=== PATIENT | male | born 1950 | race African-American/Black ===

== ENCOUNTER → 2016-10-07 | Outpatient (CLI) | payer OTHER | LOC: LAB 07:11 | PROVIDERS: ATTEND Nurse Practitioner Family | DX: M85.9 Disorder of bone density and structure, unspecified (principal) | CPT/HCPCS: 36415; 82306; 82330; 84270; 84402; 84403; 85652 ==

== ENCOUNTER → 2016-10-24 | Outpatient (CLI) | payer OTHER ==
[2016-10-24 07:32] LABS: BASOPHILS % (AUTO) 0.8 % (0.2-1.0); EOSINOPHILS # (AUTO) 0.1 x10^3/uL (0.0-0.2); EOSINOPHILS % (AUTO) 1.8 % (0.9-2.9); HEMATOCRIT 43.5 % (42.0-54.0); HEMOGLOBIN 14.5 g/dL (13.5-18.0); LYMPHOCYTES # (AUTO) 1.8 X10^3/uL (1.3-2.9); LYMPHOCYTES % (AUTO) 32.7 % (21.0-51.0); MEAN CORPUSCULAR HGB CONC 33.4 g/dL (33.0-35.0); MEAN CORPUSCULAR VOLUME 81.1 fL (80.0-100.0); MEAN PLATELET VOLUME 8.4 fL (7.4-11.0); MONOCYTES # (AUTO) 0.5 x10^3/uL (0.3-0.8); MONOCYTES % (AUTO) 8.9 % (0.0-13.0); NEUTROPHILS # (AUTO) 3.1 x10^3/uL (2.2-4.8); NEUTROPHILS % (AUTO) 55.8 % (42.0-75.0); PLATELET COUNT 278 X10^3/uL (150.0-450.0); RED BLOOD COUNT 5.37 X10^6/uL (4.7-6.0); RED CELL DISTRIBUTION WIDTH 14.4 % (11.6-16.5); WHITE BLOOD COUNT 5.6 X10^3/uL (3.6-10.0)
[2016-10-24 07:55] LABS: ALANINE AMINOTRANSFERASE 50 Units/L (12-78); ALBUMIN 3.8 g/dL (3.4-5.0); ALKALINE PHOSPHATASE 71 Units/L (46-116); ASPARTATE AMINO TRANSFERASE 24 Units/L (15-37); BILIRUBIN,DIRECT 0.07 mg/dL (0-0.2); BLOOD UREA NITROGEN 14 mg/dL (7-18); CALCIUM 8.7 mg/dL (8.5-10.1); CARBON DIOXIDE 26.8 mmol/L (21-32); CHLORIDE 106 mmol/L (98-107); CHOL/HDL RATIO 2.4 (0.0-5.0); CHOLESTEROL 121 mg/dL (0-200); CREATININE 0.86 mg/dL (0.70-1.30); HDL CHOLESTEROL 51 mg/dL (40-60); SODIUM 142 mmol/L (136-145); TOTAL PROTEIN 8.1 g/dL (6.4-8.2); TRIGLYCERIDES 33 mg/dL (0-150); eGFR BLACK RACES > 60 (>60); eGFR NON BLACK RACES > 60 (>60)
[2016-10-24 07:58] LABS: GLUCOSE 109 mg/dL (65-99)
== END ==
LOC: LAB 07:06
PROVIDERS: ATTEND Internal Medicine Cardiovascular Disease
DX: I35.0 Nonrheumatic aortic (valve) stenosis (principal); I10 Essential (primary) hypertension; E78.4 Other hyperlipidemia
CPT/HCPCS: 36415; 80048; 80061; 80076; 85025

== ENCOUNTER → 2017-03-19 | Outpatient (CLI) | payer OTHER ==
[2017-03-19 08:05] LABS: BASOPHILS % (AUTO) 0.7 % (0.2-1.0); EOSINOPHILS # (AUTO) 0.2 x10^3/uL (0.0-0.2); EOSINOPHILS % (AUTO) 3.7 % (0.9-2.9); HEMATOCRIT 42.9 % (42.0-54.0); HEMOGLOBIN 14.8 g/dL (13.5-18.0); LYMPHOCYTES # (AUTO) 1.9 X10^3/uL (1.3-2.9); LYMPHOCYTES % (AUTO) 40.6 % (21.0-51.0); MEAN CORPUSCULAR HEMOGLOBIN 28.2 pg (27.0-34.0); MEAN CORPUSCULAR HGB CONC 34.6 g/dL (33.0-35.0); MEAN CORPUSCULAR VOLUME 81.5 fL (80.0-100.0); MEAN PLATELET VOLUME 8.8 fL (7.4-11.0); MONOCYTES # (AUTO) 0.4 x10^3/uL (0.3-0.8); MONOCYTES % (AUTO) 9.2 % (0.0-13.0); NEUTROPHILS # (AUTO) 2.2 x10^3/uL (2.2-4.8); NEUTROPHILS % (AUTO) 45.8 % (42.0-75.0); PLATELET COUNT 275 X10^3/uL (150.0-450.0); RED BLOOD COUNT 5.26 X10^6/uL (4.7-6.0); RED CELL DISTRIBUTION WIDTH 13.6 % (11.6-16.5); WHITE BLOOD COUNT 4.8 X10^3/uL (3.6-10.0)
[2017-03-19 08:14] LABS: ALANINE AMINOTRANSFERASE 40 Units/L (12-78); ALBUMIN 3.9 g/dL (3.4-5.0); ALKALINE PHOSPHATASE 68 Units/L (46-116); ASPARTATE AMINO TRANSFERASE 23 Units/L (15-37); BLOOD UREA NITROGEN 16 mg/dL (7-18); CALCIUM 8.7 mg/dL (8.5-10.1); CARBON DIOXIDE 26.1 mmol/L (21-32); CHLORIDE 107 mmol/L (98-107); CREATININE 0.92 mg/dL (0.70-1.30); SODIUM 140 mmol/L (136-145); TOTAL PROTEIN 7.9 g/dL (6.4-8.2); eGFR BLACK RACES > 60 (>60); eGFR NON BLACK RACES > 60 (>60)
[2017-03-19 08:44] LABS: TOTAL PSA 1.99 ng/mL (0.13-4.0)
== END ==
LOC: LAB 07:33
PROVIDERS: ATTEND Psychiatry & Neurology Neurology
DX: I10 Essential (primary) hypertension (principal); M85.89 Other specified disorders of bone density and structure, multiple sites; Z12.5 Encounter for screening for malignant neoplasm of prostate
CPT/HCPCS: 36415; 80053; 82306; 84153; 85025

== ENCOUNTER → 2017-07-22 | Outpatient (CLI) | payer OTHER ==
--- NOTE | 2017-07-22 16:20 | RAD ---
Indication: Shortness of breath. Exam: PA and lateral Comparison: 06/11/2016 Findings: The heart is normal. The pulmonary vessels are prominent centrally but unchanged. There are mild linear densities along the lung bases which are unchanged or less prominent. No consolidation o r effusion is seen. The bones are intact. Impression: Stable mild cardiomegaly and probable pulmonary artery hypertension which is unchanged. Mild discoid atelectasis or scarring along the lung bases which is less prominent or unchanged with n o infiltrate or effusion. Reported By:
== END ==
LOC: RAD 15:36
PROVIDERS: ATTEND Nurse Practitioner Family
DX: R06.02 Shortness of breath (principal)
CPT/HCPCS: 71046

== ENCOUNTER → 2017-08-29 | Outpatient (CLI) | payer OTHER ==
[2017-08-29 07:09] LABS: BASOPHILS % (AUTO) 0.7 % (0.2-1.0); EOSINOPHILS # (AUTO) 0.1 x10^3/uL (0.0-0.2); EOSINOPHILS % (AUTO) 1.2 % (0.9-2.9); HEMATOCRIT 42.4 % (42.0-54.0); HEMOGLOBIN 14.6 g/dL (13.5-18.0); LYMPHOCYTES # (AUTO) 3.8 X10^3/uL (1.3-2.9); LYMPHOCYTES % (AUTO) 54.6 % (21.0-51.0); MEAN CORPUSCULAR HEMOGLOBIN 27.3 pg (27.0-34.0); MEAN CORPUSCULAR HGB CONC 34.5 g/dL (33.0-35.0); MEAN PLATELET VOLUME 7.6 fL (7.4-11.0); MONOCYTES # (AUTO) 0.5 x10^3/uL (0.3-0.8); MONOCYTES % (AUTO) 7.9 % (0.0-13.0); NEUTROPHILS # (AUTO) 2.5 x10^3/uL (2.2-4.8); NEUTROPHILS % (AUTO) 35.6 % (42.0-75.0); PLATELET COUNT 282 X10^3/uL (150.0-450.0); RED BLOOD COUNT 5.37 X10^6/uL (4.7-6.0); RED CELL DISTRIBUTION WIDTH 14.4 % (11.6-16.5); WHITE BLOOD COUNT 6.9 X10^3/uL (3.6-10.0)
[2017-08-29 07:18] LABS: ALANINE AMINOTRANSFERASE 40 Units/L (12-78); ALKALINE PHOSPHATASE 77 Units/L (46-116); ASPARTATE AMINO TRANSFERASE 19 Units/L (15-37); BILIRUBIN,DIRECT 0.16 mg/dL (0-0.2); BLOOD UREA NITROGEN 17 mg/dL (7-18); CALCIUM 8.3 mg/dL (8.5-10.1); CARBON DIOXIDE 24.6 mmol/L (21-32); CHLORIDE 104 mmol/L (98-107); CHOL/HDL RATIO 2.7 (0.0-5.0); CHOLESTEROL 127 mg/dL (0-200); HDL CHOLESTEROL 47 mg/dL (40-60); SODIUM 139 mmol/L (136-145); TOTAL PROTEIN 8.3 g/dL (6.4-8.2); TRIGLYCERIDES 44 mg/dL (0-150); eGFR BLACK RACES > 60 (>60); eGFR NON BLACK RACES > 60 (>60)
[2017-08-29 07:20] LABS: PLATELET MORPHOLOGY COMMENT NORMAL (NORMAL)
== END ==
LOC: LAB 06:52
PROVIDERS: ATTEND Internal Medicine Cardiovascular Disease
DX: I35.0 Nonrheumatic aortic (valve) stenosis (principal); I10 Essential (primary) hypertension; E78.4 Other hyperlipidemia
CPT/HCPCS: 36415; 80048; 80061; 80076; 85025

== ENCOUNTER → 2017-11-05 | Outpatient (CLI) | payer OTHER | LOC: LAB 07:26 | PROVIDERS: ATTEND Nurse Practitioner Family | DX: Z86.79 Personal history of other diseases of the circulatory system (principal) | CPT/HCPCS: 36415; 85610 ==

== ENCOUNTER 2017-12-19 09:09 | Inpatient (IN) ==
[2017-12-19 09:16] VITALS: BMI 30.1
--- NOTE | 2017-12-19 09:41 | DR.GENAD ---
HPI - PCP Primary Care Physician: ABBEY SNOW - HPI Comment HPI Comment: AT WORK WHEN TIGHTNESS IN LEFT CHEST STARTED ASSOCIATED WITH SOB. NO NAUSEA, FEVER OR COUGH. PAIN NON RADIATING. KNOT LEFT LEG ONE WEEK AGO. - Complaint/Symptoms Chief Complaint Doctors Comments: CHEST PAIN, TIGHTNESS. Chief Complaint:: PT C/O BEING AT WORK THIS AM ANDTHAT HE STARTED HAVING SOME TIGTNESS TO HIS CHEST AND THAT IF FEELS LIKE PINS. AND PT C/O ABOUT A WEEK AGO THAT HE HAS KNOT TO THE SIDE OF HIS LEFT LEG AND IN SEPTEMBER HE HAD A HEART VALVE REPLACED AND THAT HE WANT TO MAKE SURE HE DOES NOT HAVE A BLOOD CLOT,,BR - Nurses notes reviewed Nurses Notes Review: Yes - Source History Provided: Patient - Mode of Arrival Mode of Arrival: Ambulatory - Timing Onset of Chief Complaint: 12/19/17 Came on: Suddenly - Duration Duration: Constant Duration: Hours - Severity Severity: Moderate PMH - PMH Past Medical History: Yes Past Medical History: Hypertension Past Surgical History: Yes Past Surgical History Comment: HEART VALVE REPLACEMENT, BACK SUGERY - Family History History of Family Medical Conditions: No - Social History Does patient currently use any type of tobacco product: No Have you used tobacco products in the last 12 months: No Type of Tobacco Use: None Does any household member use tobacco: No Alcohol Use: None Do you use any recreational Drugs:: No Lives With: Significant Other Lives Where: Home - infectious screening In the last 2 months have you had wt loss of >10#?: NO Have you had fever, night sweats or hemotysis?: No Have you traveled outside the country in the last 6 months?: No Isolation: Standard ROS - Review of Systems Constitutional: Weakness, Fatigue. negative: Chills, Fever Eyes: No Symptoms Reported ENTM: No Symptoms Reported Cardiovascular: Chest Pain Gastrointestinal/Abdominal: No Symptoms Reported Genitourinary: No Symptoms Reported Neurological: No Symptoms Reported Integumentary: No Symptoms Reported Hematologic/Lymphatic: No Symptoms Reported Endocrine: No Symptoms Reported Psychiatric: No Symptoms Reported All Other Systems: Reviewed and Negative PE - General Limitations: No Limitations General Appearance: Alert - Head Head Exam: Normal Inspection - ENT ENT Exam: Normal External Ear Exam TM/Canal Exam: Bilateral Normal Nose Exam: Normal Nose Exam Mouth Exam: Normal Inspection Throat Exam: Normal Inspection - Neck Neck Exam: Normal Inspection - Chest Chest Inspection: Normal Inspection, Symmetric Chest Wall Rise - Respiratory Respiratory Exam: Normal Lung Sounds Bilat Respiratory Exam: Bilateral Clear to Auscultation - Cardiovascular Cardiovascular Exam: Regular Rate, Normal Rhythm, Normal Heart Sounds - Abdominal Exam Abdominal Exam: Normal Bowel Sounds, Soft. negative: Tenderness - Extremities Extremities Exam: Normal Inspection - Neurologic Neurological Exam: Alert, Oriented X3, CN II-XII Intact. negative: Motor Sensory Deficit - Psychiatric Psychiatric Exam: Normal Affect, Normal Mood - Skin Skin Exam: Intact, Normal Color - Vital Signs Vitals: Temperature 97.0 F Pulse Rate [Left Brachial] 71 Pulse Rate 85 Respiratory Rate 20 Blood Pressure [Right Arm] 157/74 Blood Pressure 213/88 O2 Sat by Pulse Oximetry 99 MDM - Differential Diagnosis Differential Diagnosis: CHEST PAIN, [place], PE, PNEUMONIA. Course - Treatment Treatment: SEE ORDERS. - Education/Counseling Education/Counseling: Patient Educated On: Diagnosis ROR - Labs Reviewed Laboratory Results Reviewed?: Yes Result Diagrams: 12/22/17 05:42 12/22/17 05:42 - XRAY XRAY Interpreted by: Radiologist XRAY Findings: REPORT DISCUSS WITH PATIENT. - EKG Rhythm: NSR (EKG NOTED.), ST (EKG NOTED.) - Labs Reviewed Laboratory: WBC 5.1 X10^3/uL (3.6-10.0) 12/19/17 09:50 RBC 4.93 X10^6/uL (4.7-6.0) 12/19/17 09:50 Hgb 13.6 g/dL (13.5-18.0) 12/19/17 09:50 Hct 39.6 % (42.0-54.0) L 12/19/17 09:50 MCV 80.3 fL (80.0-100.0) 12/19/17 09:50 MCH 27.7 pg (27.0-34.0) 12/19/17 09:50 MCHC 34.5 g/dL (33.0-35.0) 12/19/17 09:50 RDW 15.0 % (11.6-16.5) 12/19/17 09:50 Plt Count 296 X10^3/uL (150.0-450.0) 12/19/17 09:50 MPV 7.7 fL (7.4-11.0) 12/19/17 09:50 Neut % (Auto) 42.7 % (42.0-75.0) 12/19/17 09:50 Lymph % (Auto) 42.5 % (21.0-51.0) 12/19/17 09:50 [place] % (Auto) 12.1 % (0.0-13.0) 12/19/17 09:50 Eos % (Auto) 1.8 % (0.9-2.9) 12/19/17 09:50 Baso % (Auto) 0.9 % (0.2-1.0) 12/19/17 09:50 Neut # (Auto) 2.2 x10^3/uL (2.2-4.8) 12/19/17 09:50 Lymph # (Auto) 2.1 X10^3/uL (1.3-2.9) 12/19/17 09:50 [place] # (Auto) 0.6 x10^3/uL (0.3-0.8) 12/19/17 09:50 Eos # (Auto) 0.1 x10^3/uL (0.0-0.2) 12/19/17 09:50 Baso # (Auto) 0.0 X10^3/uL (0.0-0.1) 12/19/17 09:50 Absolute Nucleated RBC 0.2 /100WBC 12/19/17 09:50 D-Dimer < 100 ng/mL (0-400) 12/19/17 09:50 Sodium 139 mmol/L (136-145) 12/19/17 09:50 Corrected Sodium TNP 12/19/17 09:50 Potassium 3.5 mmol/L (3.5-5.1) 12/19/17 09:50 Chloride 106 mmol/L (98-107) 12/19/17 09:50 Carbon Dioxide 25.9 mmol/L (21-32) 12/19/17 09:50 BUN 15 mg/dL (7-18) 12/19/17 09:50 Creatinine 0.80 mg/dL (0.70-1.30) 12/19/17 09:50 Est GFR (MDRD) Af Amer > 60 (>60) 12/19/17 09:50 Est GFR (MDRD) Non-Af > 60 (>60) 12/19/17 09:50 Glucose 92 mg/dL (65-99) 12/19/17 09:50 Calcium 8.7 mg/dL (8.5-10.1) 12/19/17 09:50 Corrected Calcium TNP 12/19/17 09:50 Total Bilirubin 0.30 mg/dL (0.2-1.0) 12/19/17 09:50 AST 23 Units/L (15-37) 12/19/17 09:50 ALT 44 Units/L (12-78) 12/19/17 09:50 Alkaline Phosphatase 77 Units/L (46-116) 12/19/17 09:50 Creatine Kinase 367 Units/L (39-308) H 12/19/17 09:50 CK-MB (CK-2) 1.9 ng/mL (0-4.0) 12/19/17 09:50 CK/CKMB % Calc 0.5 % (<4) 12/19/17 09:50 Troponin I < 0.02 ng/mL (0-1.5) 12/19/17 09:50 Total Protein 7.7 g/dL (6.4-8.2) 12/19/17 09:50 Albumin 3.8 g/dL (3.4-5.0) 12/19/17 09:50 Globulin 3.9 g/dL (2.5-4.5) 12/19/17 09:50 Albumin/Globulin Ratio 1.0 Ratio (1.1-2.1) L 12/19/17 09:50 Specimen Type Clean catch urine 12/19/17 10:21 Urine Color Yellow (YELLOW) 12/19/17 10:21 Urine Appearance Clear (CLEAR) 12/19/17 10:21 Urine pH 6.0 (5.0 - 8.0) 12/19/17 10:21 Ur Specific [place] 1.010 (1.000-1.030) 12/19/17 10:21 Urine Protein Negative (NEGATIVE) 12/19/17 10:21 Urine Glucose (UA) 1+ (NEGATIVE) 12/19/17 10:21 Urine Ketones Negative (NEGATIVE) 12/19/17 10:21 Urine Occult Blood 1+ (NEGATIVE) 12/19/17 10:21 Urine Nitrite Negative (NEGATIVE) 12/19/17 10:21 Urine Bilirubin Negative (NEGATIVE) 12/19/17 10:21 Urine Urobilinogen Normal (NORMAL) 12/19/17 10:21 Ur Leukocyte Esterase 1+ (NEGATIVE) 12/19/17 10:21 Urine RBC 0-2 /HPF (NONE SEEN) 12/19/17 10:21 Urine WBC 0-2 /HPF (NONE SEEN) 12/19/17 10:21 Ur Squamous Epith Cells Rare /HPF (NEGATIVE) 12/19/17 10:21 Urine Bacteria Negative /HPF (NEGATIVE) 12/19/17 10:21 Ur Culture Indicated? No/not indicated 12/19/17 10:21 - Diagnosis Discharge Problem: Chest pain - Discharge Plan Disposition: HOME, SELF-CARE Condition: Stable
[2017-12-19 10:00] LABS: BASOPHILS % (AUTO) 0.9 % (0.2-1.0); EOSINOPHILS # (AUTO) 0.1 x10^3/uL (0.0-0.2); EOSINOPHILS % (AUTO) 1.8 % (0.9-2.9); HEMATOCRIT 39.6 % (42.0-54.0); HEMOGLOBIN 13.6 g/dL (13.5-18.0); LYMPHOCYTES # (AUTO) 2.1 X10^3/uL (1.3-2.9); LYMPHOCYTES % (AUTO) 42.5 % (21.0-51.0); MEAN CORPUSCULAR HEMOGLOBIN 27.7 pg (27.0-34.0); MEAN CORPUSCULAR HGB CONC 34.5 g/dL (33.0-35.0); MEAN CORPUSCULAR VOLUME 80.3 fL (80.0-100.0); MEAN PLATELET VOLUME 7.7 fL (7.4-11.0); MONOCYTES # (AUTO) 0.6 x10^3/uL (0.3-0.8); MONOCYTES % (AUTO) 12.1 % (0.0-13.0); NEUTROPHILS # (AUTO) 2.2 x10^3/uL (2.2-4.8); NEUTROPHILS % (AUTO) 42.7 % (42.0-75.0); PLATELET COUNT 296 X10^3/uL (150.0-450.0); RED BLOOD COUNT 4.93 X10^6/uL (4.7-6.0); WHITE BLOOD COUNT 5.1 X10^3/uL (3.6-10.0)
[2017-12-19 10:20] LABS: BLOOD UREA NITROGEN 15 mg/dL (7-18); CALCIUM 8.7 mg/dL (8.5-10.1); CARBON DIOXIDE 25.9 mmol/L (21-32); CHLORIDE 106 mmol/L (98-107); SODIUM 139 mmol/L (136-145); TROPONIN I < 0.02 ng/mL (0-1.5); eGFR NON BLACK RACES > 60 (>60)
[2017-12-19 10:25] LABS: ALANINE AMINOTRANSFERASE 44 Units/L (12-78); ALBUMIN 3.8 g/dL (3.4-5.0); ALKALINE PHOSPHATASE 77 Units/L (46-116); ASPARTATE AMINO TRANSFERASE 23 Units/L (15-37); CKMB % 0.5 % (<4); CREATINE KINASE 367 Units/L (39-308); CREATINE KINASE MB 1.9 ng/mL (0-4.0); TOTAL PROTEIN 7.7 g/dL (6.4-8.2)
[2017-12-19 10:38] LABS: BILIRUBIN,URINE NEGATIVE (NEGATIVE); BLOOD/HEMOGLOBIN,URINE 1+ (NEGATIVE); GLUCOSE, URINE 1+ (NEGATIVE); KETONES,URINE NEGATIVE (NEGATIVE); LEUKOCYTE ESTERASE ,URINE 1+ (NEGATIVE); NITRITES,URINE NEGATIVE (NEGATIVE); PROTEIN,URINE NEGATIVE (NEGATIVE); UROBILINOGEN,URINE NORMAL (NORMAL)
[2017-12-19 10:50] LABS: APPEARANCE,URINE CLEAR (CLEAR); COLOR,URINE YELLOW (YELLOW)
[2017-12-19 10:52] LABS: BACTERIA,URINE NEGATIVE /HPF (NEGATIVE); RBC,URINE 0-2 /HPF (NONE SEEN); SQUAMOUS EPITHELIAL CELL,UR RARE /HPF (NEGATIVE)
[2017-12-19] MEDS ORDERED: NITROSTAT SL PRN (12:26)
[2017-12-19] MEDS ORDERED: PATIENT'S HOME MEDICATION (Albuterol Sulfate [Proair Hfa] 1 INH) IN PRN (12:26)
[2017-12-19] MEDS ORDERED: ALENDRONATE PO SCH (12:30)
[2017-12-19] MEDS ORDERED: PROVENTIL NEB TX 0.083% 2.5MG/ 3ML NEB PRN (12:47)
--- NOTE | 2017-12-19 12:54 | RAD ---
HISTORY: Chest pain Study: Chest AP portable Comparison: 07/22/2017 Findings: The heart is within normal limits in size. The abel are normal. The lungs are free of acute infiltrat es. Surgical clips are present in the right hilum the bony thorax is unremarkable. IMPRESSION: No significant abnormality identified Reported By:
[2017-12-19] MEDS ORDERED: ISOSORBIDE DINITRATE PO SCH (14:00)
[2017-12-19] MEDS ORDERED: HYDRALAZINE PO SCH (14:00)
[2017-12-19] MEDS: NS 1000 ML 1,000 ML IV SCH (14:12)
[2017-12-19] MEDS: APRESOLINE TAB 25 MG PO SCH ×2 (14:54→22:53)
[2017-12-19] MEDS: APRESOLINE TAB 10 MG PO SCH ×2 (14:54→21:01)
[2017-12-19] MEDS: ISOSORBIDE DINITRATE PO SCH ×2 (14:55→21:55)
[2017-12-19 16:07] LABS: CKMB % 0.5 % (<4); CREATINE KINASE 338 Units/L (39-308); CREATINE KINASE MB 1.7 ng/mL (0-4.0); TROPONIN I < 0.02 ng/mL (0-1.5)
[2017-12-19] MEDS: CRESTOR TAB 10 MG PO SCH (21:00)
[2017-12-19] MEDS: CATAPRES TAB 0.2 MG PO SCH (21:00)
[2017-12-19] MEDS: ZESTRIL TAB 40 MG PO SCH (21:00)
[2017-12-19] MEDS: NEURONTIN CAP 400 MG PO SCH (21:00)
[2017-12-19] MEDS: COUMADIN TAB 7.5 MG PO SCH (21:55)
[2017-12-19 23:19] LABS: CKMB % 0.4 % (<4); CREATINE KINASE 285 Units/L (39-308); CREATINE KINASE MB 1.2 ng/mL (0-4.0); TROPONIN I < 0.02 ng/mL (0-1.5)
[2017-12-20] MEDS: NS 1000 ML 1,000 ML IV SCH ×2 (03:11→18:34)
[2017-12-20 06:03] LABS: BASOPHILS # (AUTO) 0.1 X10^3/uL (0.0-0.1); BASOPHILS % (AUTO) 1.2 % (0.2-1.0); EOSINOPHILS # (AUTO) 0.2 x10^3/uL (0.0-0.2); HEMATOCRIT 38.8 % (42.0-54.0); HEMOGLOBIN 13.5 g/dL (13.5-18.0); LYMPHOCYTES # (AUTO) 2.3 X10^3/uL (1.3-2.9); LYMPHOCYTES % (AUTO) 42.1 % (21.0-51.0); MEAN CORPUSCULAR HEMOGLOBIN 27.8 pg (27.0-34.0); MEAN CORPUSCULAR HGB CONC 34.8 g/dL (33.0-35.0); MEAN CORPUSCULAR VOLUME 79.8 fL (80.0-100.0); MEAN PLATELET VOLUME 8.3 fL (7.4-11.0); MONOCYTES # (AUTO) 0.5 x10^3/uL (0.3-0.8); MONOCYTES % (AUTO) 9.9 % (0.0-13.0); NEUTROPHILS # (AUTO) 2.4 x10^3/uL (2.2-4.8); NEUTROPHILS % (AUTO) 43.8 % (42.0-75.0); PLATELET COUNT 266 X10^3/uL (150.0-450.0); RED BLOOD COUNT 4.86 X10^6/uL (4.7-6.0); RED CELL DISTRIBUTION WIDTH 15.2 % (11.6-16.5); WHITE BLOOD COUNT 5.4 X10^3/uL (3.6-10.0)
[2017-12-20 06:20] LABS: ALANINE AMINOTRANSFERASE 40 Units/L (12-78); ALBUMIN 3.4 g/dL (3.4-5.0); ALKALINE PHOSPHATASE 69 Units/L (46-116); ASPARTATE AMINO TRANSFERASE 18 Units/L (15-37); BLOOD UREA NITROGEN 15 mg/dL (7-18); CALCIUM 8.6 mg/dL (8.5-10.1); CARBON DIOXIDE 24.9 mmol/L (21-32); CHLORIDE 107 mmol/L (98-107); CHOL/HDL RATIO 2.9 (0.0-5.0); CHOLESTEROL 121 mg/dL (0-200); CREATININE 0.91 mg/dL (0.70-1.30); HDL CHOLESTEROL 42 mg/dL (40-60); MAGNESIUM 1.9 mg/dL (1.7-2.9); SODIUM 140 mmol/L (136-145); TOTAL PROTEIN 7.3 g/dL (6.4-8.2); TRIGLYCERIDES 84 mg/dL (0-150); eGFR NON BLACK RACES > 60 (>60)
[2017-12-20] MEDS: APRESOLINE TAB 10 MG PO SCH ×3 (06:24→21:40)
[2017-12-20] MEDS: APRESOLINE TAB 25 MG PO SCH ×3 (06:24→21:40)
[2017-12-20] MEDS: ISOSORBIDE DINITRATE PO SCH ×3 (06:25→21:33)
[2017-12-20] MEDS: ASPIRIN EC 81 MG PO SCH (09:00)
[2017-12-20] MEDS ORDERED: NIFEDIPINE PO SCH (09:00)
[2017-12-20] MEDS: ZyrTEC TAB 10 MG PO SCH (09:00)
[2017-12-20] MEDS: PROCARDIA XL PO SCH (09:00)
[2017-12-20] MEDS: FLOMAX PO SCH (09:00)
[2017-12-20] MEDS: CATAPRES TAB 0.2 MG PO SCH ×2 (09:00→21:32)
[2017-12-20] MEDS: PROTONIX TAB 40 MG PO SCH (09:00)
[2017-12-20] MEDS ORDERED: COUMADIN TAB 5 MG PO ONE (13:56)
[2017-12-20] MEDS: NEURONTIN CAP 400 MG PO SCH (21:32)
[2017-12-20] MEDS: COUMADIN TAB 7.5 MG PO SCH (21:35)
[2017-12-20] MEDS: CRESTOR TAB 10 MG PO SCH (21:37)
[2017-12-20] MEDS: ZESTRIL TAB 40 MG PO SCH (21:39)
[2017-12-20] MEDS: LOVENOX INJ 100 MG SYR SC SCH (21:41)
--- NOTE | 2017-12-20 22:34 | DR.H&P ---
H&P - History & Physical for Day of: H&P Date: 12/19/17 - Chief Complaint Chief Complaint: CHEST BURNING - History of Present Illness History of Present Illness: PT C/O BEING AT WORK THIS AM ANDTHAT HE STARTED HAVING SOME TIGTNESS TO HIS CHEST AND THAT IF FEELS LIKE PINS. AND PT C/O ABOUT A WEEK AGO THAT HE HAS KNOT TO THE SIDE OF HIS LEFT LEG AND IN SEPTEMBER HE HAD A HEART VALVE REPLACED AND THAT HE WANT TO MAKE SURE HE DOES NOT HAVE A BLOOD CLOT - Past Medical History Past Medical History: Hypertension Additional Medical History: AORTIC VALVE REPLACEMENT ON CHRONIC COUMADIN - Past Surgical History Surgical History: CABG/Valve Surgery, Ortho Surgery - Family History Family Medical History: Cancer, Coronary Artery Disease - Social History Does patient currently use any type of tobacco product: No Have you used tobacco products in the last 12 months: No Type of Tobacco Use: None Does any household member use tobacco: No Alcohol Use: None Drug Use: None - Medications Home Medications: penicillin G Allergy (Verified 12/19/17 09:16) CONTINUE taking the following medications albuterol sulfate [ProAir HFA] 1 inh INHALATION Q4-6H PRN 12/19/17 [History] alendronate [Fosamax] 1 tab PO WEEKLY 12/19/17 [History] aspirin [Aspir-81] 1 tab PO DAILY 12/19/17 [History] cetirizine 1 tab PO DAILY 12/19/17 [History] clonidine HCl 1 tab PO BID 12/19/17 [History] gabapentin [Neurontin] 1 tab PO HS 12/19/17 [History] isosorbide-hydralazine [BiDil] 1 tab PO TID 12/19/17 [History] lisinopril 1 tab PO HS 12/19/17 [History] nifedipine [Procardia XL] 1 tab PO DAILY 12/19/17 [History] nitroglycerin 1 tab SUBLINGUAL PRN PRN 12/19/17 [History] pantoprazole [Protonix] 1 tab PO DAILY 12/19/17 [History] rosuvastatin [Crestor] 1 tab PO HS 12/19/17 [History] tamsulosin 1 tab PO DAILY 12/19/17 [History] warfarin [Coumadin] 1 tab PO DAILY 12/19/17 [History] - Review of Systems Constitutional: No Symptoms Reported Eyes: No Symptoms Reported ENT: No Symptoms Reported Respiratory: No Symptoms Reported Cardiovascular: Chest Pain Gastrointestinal: No Symptoms Reported Genitourinary: No Symptoms Reported Musculoskeletal: No Symptoms Reported Skin: No Symptoms Reported Neurological: No Symptoms Reported - Physical Exam Vital Signs: Temperature 98.3 F Pulse Rate [Right Brachial] 48 Pulse Rate [Left Brachial] 58 Pulse Rate 85 Respiratory Rate 18 Blood Pressure [Left Arm] 147/67 Blood Pressure [Right Arm] 107/55 Blood Pressure 213/88 O2 Sat by Pulse Oximetry 96 Oriented: Normal Eyes: Normal Ear: Normal Nose: Normal Throat: Normal Respiratory: Clear Throughout Cardiovascular: Other (MECHANICAL VALVE CLICK (AORTIC)) : Normal Auscultation: Bowel Sounds: Normal Palpation: Normal Tenderness: Normal Skin: Normal Musculoskeletal: Normal Psychiatric: Normal Mood Description: Calm Affect: Normal Speech Pattern: Clear - Assessment/Plan (1) Subtherapeutic anticoagulation Status: Acute Plan: COUMADIN, CHECK INR (2) Mechanical heart valve present Status: Chronic (3) Hypertension Qualifiers: Hypertension type: essential hypertension Qualified Code(s): I10 - Essential (primary) hypertension Status: Acute Plan: MONITOR BP AND ADMINISTER HOME MEDS (4) Left leg pain Status: Acute Plan: MONITOR MOTOR STRENGTH (5) UTI (urinary tract infection) Qualifiers: Urinary tract infection type: acute cystitis Status: Acute Plan: MACROBID (6) Chest pain Status: Acute - Allergies Allergies/Adverse Reactions: Allergies Allergy/AdvReac Type Severity Reaction Status Date / Time penicillin G Allergy Verified 12/19/17 09:16
--- NOTE | 2017-12-20 22:38 | PCM.PROG ---
Progress Note - Progress Note for Day of Date of Exam: 12/20/17 - Subjective Subjective: 67YO BM ADMITTED DUE TO CHEST BURNING. DENIES GI SYMPTOMS. STATES PAIN IS BETTER. STATES THAT LEG PAIN IS IMPROVING. DENIES ANY OTHER COMPLAINTS. - Past Medical Family Social History Past Med/Fam/Surg Hx: No changes since H&P Allergies: Allergies penicillin G Allergy (Verified 12/19/17 09:16) - Review of Systems ROS: No change since H&P - Vital Signs and I&O's Vital Signs: Temperature 98.3 F Pulse Rate [Right Brachial] 48 Pulse Rate [Left Brachial] 58 Pulse Rate 85 Respiratory Rate 18 Blood Pressure [Left Arm] 147/67 Blood Pressure [Right Arm] 107/55 Blood Pressure 213/88 O2 Sat by Pulse Oximetry 96 Intake and Output: Intake & Output 12/18/17 12/19/17 12/20/17 12/21/17 11:59 11:59 11:59 11:59 Intake Total 1850 / 1850 2009 Output Total 800 / 800 Balance 1850 / 1850 1210 / 1210 - Physical Exam Oriented: Normal Eyes: Normal Ear: Normal Nose: Normal Throat: Normal Respiratory: Normal Cardiovascular: Other (MECHANICAL VALVE CLICK (AORTIC)) : Normal Auscultation: Bowel Sounds: Normal Palpation: Normal Tenderness: Normal Skin: Normal Musculoskeletal: Normal Psychiatric: Normal Mood Description: Calm Affect: Normal Speech Pattern: Clear - Laboratory and Diagnostics Result Diagrams: 12/20/17 05:27 12/20/17 05:27 Labs: Laboratory WBC 5.4 X10^3/uL (3.6-10.0) 12/20/17 05:27 RBC 4.86 X10^6/uL (4.7-6.0) 12/20/17 05:27 Hgb 13.5 g/dL (13.5-18.0) 12/20/17 05:27 Hct 38.8 % (42.0-54.0) L 12/20/17 05:27 MCV 79.8 fL (80.0-100.0) L 12/20/17 05:27 MCH 27.8 pg (27.0-34.0) 12/20/17 05:27 MCHC 34.8 g/dL (33.0-35.0) 12/20/17 05:27 RDW 15.2 % (11.6-16.5) 12/20/17 05:27 Plt Count 266 X10^3/uL (150.0-450.0) 12/20/17 05:27 MPV 8.3 fL (7.4-11.0) 12/20/17 05:27 Neut % (Auto) 43.8 % (42.0-75.0) 12/20/17 05:27 Lymph % (Auto) 42.1 % (21.0-51.0) 12/20/17 05:27 [place] % (Auto) 9.9 % (0.0-13.0) 12/20/17 05:27 Eos % (Auto) 3.0 % (0.9-2.9) H 12/20/17 05:27 Baso % (Auto) 1.2 % (0.2-1.0) H 12/20/17 05:27 Neut # (Auto) 2.4 x10^3/uL (2.2-4.8) 12/20/17 05:27 Lymph # (Auto) 2.3 X10^3/uL (1.3-2.9) 12/20/17 05:27 [place] # (Auto) 0.5 x10^3/uL (0.3-0.8) 12/20/17 05:27 Eos # (Auto) 0.2 x10^3/uL (0.0-0.2) 12/20/17 05:27 Baso # (Auto) 0.1 X10^3/uL (0.0-0.1) 12/20/17 05:27 Absolute Nucleated RBC 0.1 /100WBC 12/20/17 05:27 INR Target Range - 12/20/17 05:27 INR 1.82 (0.8-1.3) H 12/20/17 05:27 APTT 33.3 SECONDS (22.9-36.5) 12/20/17 05:27 PTT Comment - 12/20/17 05:27 D-Dimer < 100 ng/mL (0-400) 12/19/17 09:50 Sodium 140 mmol/L (136-145) 12/20/17 05:27 Corrected Sodium TNP 12/20/17 05:27 Potassium 3.9 mmol/L (3.5-5.1) 12/20/17 05:27 Chloride 107 mmol/L (98-107) 12/20/17 05:27 Carbon Dioxide 24.9 mmol/L (21-32) 12/20/17 05:27 BUN 15 mg/dL (7-18) 12/20/17 05:27 Creatinine 0.91 mg/dL (0.70-1.30) 12/20/17 05:27 Est GFR (MDRD) Af Amer > 60 (>60) 12/20/17 05:27 Est GFR (MDRD) Non-Af > 60 (>60) 12/20/17 05:27 Glucose 103 mg/dL (65-99) H 12/20/17 05:27 Calcium 8.6 mg/dL (8.5-10.1) 12/20/17 05:27 Corrected Calcium TNP 12/20/17 05:27 Magnesium 1.9 mg/dL (1.7-2.9) 12/20/17 05:27 Total Bilirubin 0.40 mg/dL (0.2-1.0) 12/20/17 05:27 AST 18 Units/L (15-37) 12/20/17 05:27 ALT 40 Units/L (12-78) 12/20/17 05:27 Alkaline Phosphatase 69 Units/L (46-116) 12/20/17 05:27 Creatine Kinase 285 Units/L (39-308) 12/19/17 22:33 CK-MB (CK-2) 1.2 ng/mL (0-4.0) 12/19/17 22:33 CK/CKMB % Calc 0.4 % (<4) 12/19/17 22:33 Troponin I < 0.02 ng/mL (0-1.5) 12/19/17 22:33 Total Protein 7.3 g/dL (6.4-8.2) 12/20/17 05:27 Albumin 3.4 g/dL (3.4-5.0) 12/20/17 05:27 Globulin 3.9 g/dL (2.5-4.5) 12/20/17 05:27 Albumin/Globulin Ratio 0.9 Ratio (1.1-2.1) L 12/20/17 05:27 Triglycerides 84 mg/dL (0-150) 12/20/17 05:27 Cholesterol 121 mg/dL (0-200) 12/20/17 05:27 LDL Cholesterol, Calc 62 mg/dL (0-100) 12/20/17 05:27 HDL Cholesterol 42 mg/dL (40-60) 12/20/17 05:27 Cholesterol/HDL Ratio 2.9 (0.0-5.0) 12/20/17 05:27 Specimen Type Clean catch urine 12/19/17 10:21 Urine Color Yellow (YELLOW) 12/19/17 10:21 Urine Appearance Clear (CLEAR) 12/19/17 10:21 Urine pH 6.0 (5.0 - 8.0) 12/19/17 10:21 Ur Specific [place] 1.010 (1.000-1.030) 12/19/17 10:21 Urine Protein Negative (NEGATIVE) 12/19/17 10:21 Urine Glucose (UA) 1+ (NEGATIVE) 12/19/17 10:21 Urine Ketones Negative (NEGATIVE) 12/19/17 10:21 Urine Occult Blood 1+ (NEGATIVE) 12/19/17 10:21 Urine Nitrite Negative (NEGATIVE) 12/19/17 10:21 Urine Bilirubin Negative (NEGATIVE) 12/19/17 10:21 Urine Urobilinogen Normal (NORMAL) 12/19/17 10:21 Ur Leukocyte Esterase 1+ (NEGATIVE) 12/19/17 10:21 Urine RBC 0-2 /HPF (NONE SEEN) 12/19/17 10:21 Urine WBC 0-2 /HPF (NONE SEEN) 12/19/17 10:21 Ur Squamous Epith Cells Rare /HPF (NEGATIVE) 12/19/17 10:21 Urine Bacteria Negative /HPF (NEGATIVE) 12/19/17 10:21 Ur Culture Indicated? No/not indicated 12/19/17 10:21 - Plan (1) Subtherapeutic anticoagulation Status: Acute Plan: COUMADIN, CHECK INR (2) Mechanical heart valve present Status: Chronic (3) Hypertension Status: Acute Qualifiers: Hypertension type: essential hypertension Qualified Code(s): I10 - Essential (primary) hypertension Plan: MONITOR BP AND ADMINISTER HOME MEDS (4) Left leg pain Status: Acute Plan: MONITOR MOTOR STRENGTH (5) UTI (urinary tract infection) Status: Acute Qualifiers: Urinary tract infection type: acute cystitis Plan: MACROBID (6) Chest pain Status: Acute
[2017-12-21 06:01] LABS: BASOPHILS % (AUTO) 0.7 % (0.2-1.0); EOSINOPHILS # (AUTO) 0.2 x10^3/uL (0.0-0.2); EOSINOPHILS % (AUTO) 3.7 % (0.9-2.9); HEMATOCRIT 37.2 % (42.0-54.0); HEMOGLOBIN 12.7 g/dL (13.5-18.0); LYMPHOCYTES # (AUTO) 2.1 X10^3/uL (1.3-2.9); LYMPHOCYTES % (AUTO) 46.3 % (21.0-51.0); MEAN CORPUSCULAR HEMOGLOBIN 27.6 pg (27.0-34.0); MEAN CORPUSCULAR HGB CONC 34.2 g/dL (33.0-35.0); MEAN CORPUSCULAR VOLUME 80.6 fL (80.0-100.0); MEAN PLATELET VOLUME 8.3 fL (7.4-11.0); MONOCYTES # (AUTO) 0.4 x10^3/uL (0.3-0.8); MONOCYTES % (AUTO) 8.1 % (0.0-13.0); NEUTROPHILS # (AUTO) 1.9 x10^3/uL (2.2-4.8); NEUTROPHILS % (AUTO) 41.2 % (42.0-75.0); PLATELET COUNT 265 X10^3/uL (150.0-450.0); RED BLOOD COUNT 4.61 X10^6/uL (4.7-6.0); RED CELL DISTRIBUTION WIDTH 14.8 % (11.6-16.5); WHITE BLOOD COUNT 4.6 X10^3/uL (3.6-10.0)
[2017-12-21 06:38] LABS: BLOOD UREA NITROGEN 11 mg/dL (7-18); CARBON DIOXIDE 24.5 mmol/L (21-32); CHLORIDE 107 mmol/L (98-107); COR NA(FOR HYPERGLY) 140 mmol/L (136-145); CREATININE 0.95 mg/dL (0.70-1.30); SODIUM 140 mmol/L (136-145); eGFR NON BLACK RACES > 60 (>60)
[2017-12-21] MEDS: PROCARDIA XL PO SCH (09:00)
[2017-12-21] MEDS: LOVENOX INJ 100 MG SYR SC SCH ×2 (10:00→21:27)
[2017-12-21] MEDS: ZyrTEC TAB 10 MG PO SCH (10:00)
[2017-12-21] MEDS: FLOMAX PO SCH (10:00)
[2017-12-21] MEDS: ASPIRIN EC 81 MG PO SCH (10:00)
[2017-12-21] MEDS: CATAPRES TAB 0.2 MG PO SCH (10:00)
[2017-12-21] MEDS: MACROBID CAP 100 MG EXT REL PO SCH ×3 (10:00→21:37)
[2017-12-21] MEDS: PROTONIX TAB 40 MG PO SCH (10:00)
[2017-12-21 12:15] LABS: ALANINE AMINOTRANSFERASE 35 Units/L (12-78); ALBUMIN 3.1 g/dL (3.4-5.0); ALKALINE PHOSPHATASE 74 Units/L (46-116); ASPARTATE AMINO TRANSFERASE 23 Units/L (15-37); COR CA(FOR HYPOALB) 8.7 mg/dL (8.5-10.1); TOTAL PROTEIN 6.6 g/dL (6.4-8.2)
[2017-12-21] MEDS: ISOSORBIDE DINITRATE PO SCH ×2 (14:00→21:31)
[2017-12-21] MEDS: APRESOLINE TAB 10 MG PO SCH ×2 (14:00→21:32)
[2017-12-21] MEDS: APRESOLINE TAB 25 MG PO SCH ×3 (14:00→21:33)
--- NOTE | 2017-12-21 17:28 | VAS ---
Lower extremity doppler sonogram Indication: Knot on left leg Comparison: None available TECHNIQUE: Multiple persaud scale and color flow Doppler images of the deep venous system were obtained of the left lower extremity. FINDINGS: The deep venous system of the left lower extremity was evaluated from the level of the common femoral vein through the popliteal vein. Normal color flow and augmentation can be observed. In addition, normal compression is seen throughout the deep venous system. IMPRESSION: 1. Negative for left lower extremity DVT. Reported By:
[2017-12-21] MEDS: NS 1000 ML 1,000 ML IV SCH (17:40)
[2017-12-21] MEDS ORDERED: CATAPRES TAB 0.2 MG PO PRN (17:41)
[2017-12-21] MEDS: CRESTOR TAB 10 MG PO SCH (21:25)
[2017-12-21] MEDS: NEURONTIN CAP 400 MG PO SCH (21:25)
[2017-12-21] MEDS: ZESTRIL TAB 40 MG PO SCH (21:26)
[2017-12-21] MEDS ORDERED: COUMADIN TAB 10 MG ONE (21:32)
[2017-12-21] MEDS ORDERED: COUMADIN TAB 5 MG PO ONE (22:58)
--- NOTE | 2017-12-21 23:03 | PCM.PROG ---
Progress Note - Progress Note for Day of Date of Exam: 12/21/17 - Subjective Subjective: 67YO BM ADMITTED DUE TO CHEST BURNING. DENIES GI SYMPTOMS. STATES PAIN IS BETTER. STATES THAT LEG PAIN IS IMPROVING. STATES HE HAS NOTICE THAT HIS HEART RATE WILL BE LOW. STATES IT DOES IMPROVE IF HE BECOMES ACTIVE. DENIES ANY OTHER COMPLAINTS. - Past Medical Family Social History Past Med/Fam/Surg Hx: No changes since H&P Allergies: Allergies penicillin G Allergy (Verified 12/19/17 09:16) - Review of Systems ROS: No change since H&P - Vital Signs and I&O's Vital Signs: Temperature 98.4 F Pulse Rate [Right Brachial] 48 Pulse Rate [Left Brachial] 58 Pulse Rate 52 Respiratory Rate 18 Blood Pressure [Left Arm] 140/68 Blood Pressure [Right Arm] 123/58 Blood Pressure 213/88 O2 Sat by Pulse Oximetry 97 Intake and Output: Intake & Output 12/19/17 12/20/17 12/21/17 12/22/17 11:59 11:59 11:59 11:59 Intake Total 1850 / 1850 3425 / 3425 1200 / 1200 Output Total 1380 / 1380 500 / 500 Balance 1850 / 1850 2045 / 2045 700 / 700 - Physical Exam Oriented: Normal Eyes: Normal Ear: Normal Nose: Normal Throat: Normal Respiratory: Normal Cardiovascular: Bradycardia, Other (MECHANICAL VALVE CLICK (AORTIC)) : Normal Auscultation: Bowel Sounds: Normal Palpation: Normal Tenderness: Normal Skin: Normal Musculoskeletal: Normal Psychiatric: Normal Mood Description: Calm Affect: Normal Speech Pattern: Clear, Appropriate - Laboratory and Diagnostics Result Diagrams: 12/21/17 05:14 12/21/17 05:14 Labs: Laboratory WBC 4.6 X10^3/uL (3.6-10.0) 12/21/17 05:14 RBC 4.61 X10^6/uL (4.7-6.0) L 12/21/17 05:14 Hgb 12.7 g/dL (13.5-18.0) L 12/21/17 05:14 Hct 37.2 % (42.0-54.0) L 12/21/17 05:14 MCV 80.6 fL (80.0-100.0) 12/21/17 05:14 MCH 27.6 pg (27.0-34.0) 12/21/17 05:14 MCHC 34.2 g/dL (33.0-35.0) 12/21/17 05:14 RDW 14.8 % (11.6-16.5) 12/21/17 05:14 Plt Count 265 X10^3/uL (150.0-450.0) 12/21/17 05:14 MPV 8.3 fL (7.4-11.0) 12/21/17 05:14 Neut % (Auto) 41.2 % (42.0-75.0) L 12/21/17 05:14 Lymph % (Auto) 46.3 % (21.0-51.0) 12/21/17 05:14 [place] % (Auto) 8.1 % (0.0-13.0) 12/21/17 05:14 Eos % (Auto) 3.7 % (0.9-2.9) H 12/21/17 05:14 Baso % (Auto) 0.7 % (0.2-1.0) 12/21/17 05:14 Neut # (Auto) 1.9 x10^3/uL (2.2-4.8) L 12/21/17 05:14 Lymph # (Auto) 2.1 X10^3/uL (1.3-2.9) 12/21/17 05:14 [place] # (Auto) 0.4 x10^3/uL (0.3-0.8) 12/21/17 05:14 Eos # (Auto) 0.2 x10^3/uL (0.0-0.2) 12/21/17 05:14 Baso # (Auto) 0.0 X10^3/uL (0.0-0.1) 12/21/17 05:14 Absolute Nucleated RBC 0.2 /100WBC 12/21/17 05:14 INR Target Range - 12/21/17 05:14 INR 1.98 (0.8-1.3) H 12/21/17 05:14 APTT 33.3 SECONDS (22.9-36.5) 12/20/17 05:27 PTT Comment - 12/20/17 05:27 D-Dimer < 100 ng/mL (0-400) 12/19/17 09:50 Sodium 140 mmol/L (136-145) 12/21/17 05:14 Corrected Sodium 140 mmol/L (136-145) 12/21/17 05:14 Potassium 3.8 mmol/L (3.5-5.1) 12/21/17 05:14 Chloride 107 mmol/L (98-107) 12/21/17 05:14 Carbon Dioxide 24.5 mmol/L (21-32) 12/21/17 05:14 BUN 11 mg/dL (7-18) 12/21/17 05:14 Creatinine 0.95 mg/dL (0.70-1.30) 12/21/17 05:14 Est GFR (MDRD) Af Amer > 60 (>60) 12/21/17 05:14 Est GFR (MDRD) Non-Af > 60 (>60) 12/21/17 05:14 Glucose 117 mg/dL (65-99) H 12/21/17 05:14 Calcium 8.0 mg/dL (8.5-10.1) L 12/21/17 05:14 Corrected Calcium 8.7 mg/dL (8.5-10.1) 12/21/17 05:14 Magnesium 1.9 mg/dL (1.7-2.9) 12/20/17 05:27 Total Bilirubin 0.10 mg/dL (0.2-1.0) L 12/21/17 05:14 AST 23 Units/L (15-37) 12/21/17 05:14 ALT 35 Units/L (12-78) 12/21/17 05:14 Alkaline Phosphatase 74 Units/L (46-116) 12/21/17 05:14 Creatine Kinase 285 Units/L (39-308) 12/19/17 22:33 CK-MB (CK-2) 1.2 ng/mL (0-4.0) 12/19/17 22:33 CK/CKMB % Calc 0.4 % (<4) 12/19/17 22:33 Troponin I < 0.02 ng/mL (0-1.5) 12/19/17 22:33 Total Protein 6.6 g/dL (6.4-8.2) 12/21/17 05:14 Albumin 3.1 g/dL (3.4-5.0) L 12/21/17 05:14 Globulin 3.5 g/dL (2.5-4.5) 12/21/17 05:14 Albumin/Globulin Ratio 0.9 Ratio (1.1-2.1) L 12/21/17 05:14 Triglycerides 84 mg/dL (0-150) 12/20/17 05:27 Cholesterol 121 mg/dL (0-200) 12/20/17 05:27 LDL Cholesterol, Calc 62 mg/dL (0-100) 12/20/17 05:27 HDL Cholesterol 42 mg/dL (40-60) 12/20/17 05:27 Cholesterol/HDL Ratio 2.9 (0.0-5.0) 12/20/17 05:27 Specimen Type Clean catch urine 12/19/17 10:21 Urine Color Yellow (YELLOW) 12/19/17 10:21 Urine Appearance Clear (CLEAR) 12/19/17 10:21 Urine pH 6.0 (5.0 - 8.0) 12/19/17 10:21 Ur Specific [place] 1.010 (1.000-1.030) 12/19/17 10:21 Urine Protein Negative (NEGATIVE) 12/19/17 10:21 Urine Glucose (UA) 1+ (NEGATIVE) 12/19/17 10:21 Urine Ketones Negative (NEGATIVE) 12/19/17 10:21 Urine Occult Blood 1+ (NEGATIVE) 12/19/17 10:21 Urine Nitrite Negative (NEGATIVE) 12/19/17 10:21 Urine Bilirubin Negative (NEGATIVE) 12/19/17 10:21 Urine Urobilinogen Normal (NORMAL) 12/19/17 10:21 Ur Leukocyte Esterase 1+ (NEGATIVE) 12/19/17 10:21 Urine RBC 0-2 /HPF (NONE SEEN) 12/19/17 10:21 Urine WBC 0-2 /HPF (NONE SEEN) 12/19/17 10:21 Ur Squamous Epith Cells Rare /HPF (NEGATIVE) 12/19/17 10:21 Urine Bacteria Negative /HPF (NEGATIVE) 12/19/17 10:21 Ur Culture Indicated? No/not indicated 12/19/17 10:21 Radiology Reviewed: Yes EKG Reviewed: Yes Rhythm: SB - Plan (1) Subtherapeutic anticoagulation Status: Acute Plan: COUMADIN, CHECK INR (2) Mechanical heart valve present Status: Chronic (3) Hypertension Status: Acute Qualifiers: Hypertension type: essential hypertension Qualified Code(s): I10 - Essential (primary) hypertension Plan: MONITOR BP AND ADMINISTER HOME MEDS (4) Left leg pain Status: Acute Plan: MONITOR MOTOR STRENGTH (5) UTI (urinary tract infection) Status: Acute Qualifiers: Urinary tract infection type: acute cystitis Plan: MACROBID (6) Chest pain Status: Acute (7) Bradycardia Status: Acute Plan: TELEMETRY. MONITOR MEDS. CONSIDER DECREASE OF IMDUR IF CONTINUES.
[2017-12-22] MEDS: NS 1000 ML 1,000 ML IV SCH (05:38)
[2017-12-22] MEDS: APRESOLINE TAB 10 MG PO SCH (05:39)
[2017-12-22] MEDS: APRESOLINE TAB 25 MG PO SCH (05:40)
[2017-12-22] MEDS: ISOSORBIDE DINITRATE PO SCH (05:40)
[2017-12-22 06:33] LABS: EOSINOPHILS # (AUTO) 0.2 x10^3/uL (0.0-0.2); EOSINOPHILS % (AUTO) 3.6 % (0.9-2.9); LYMPHOCYTES # (AUTO) 2.5 X10^3/uL (1.3-2.9); LYMPHOCYTES % (AUTO) 53.9 % (21.0-51.0); MEAN CORPUSCULAR HEMOGLOBIN 27.4 pg (27.0-34.0); MEAN CORPUSCULAR HGB CONC 34.2 g/dL (33.0-35.0); MEAN PLATELET VOLUME 8.7 fL (7.4-11.0); MONOCYTES # (AUTO) 0.4 x10^3/uL (0.3-0.8); MONOCYTES % (AUTO) 8.5 % (0.0-13.0); NEUTROPHILS # (AUTO) 1.5 x10^3/uL (2.2-4.8); PLATELET COUNT 239 X10^3/uL (150.0-450.0); RED BLOOD COUNT 4.74 X10^6/uL (4.7-6.0); RED CELL DISTRIBUTION WIDTH 14.9 % (11.6-16.5); WHITE BLOOD COUNT 4.6 X10^3/uL (3.6-10.0)
[2017-12-22 06:41] LABS: ALANINE AMINOTRANSFERASE 33 Units/L (12-78); ALBUMIN 3.2 g/dL (3.4-5.0); ALKALINE PHOSPHATASE 69 Units/L (46-116); ASPARTATE AMINO TRANSFERASE 18 Units/L (15-37); BLOOD UREA NITROGEN 9 mg/dL (7-18); CALCIUM 8.2 mg/dL (8.5-10.1); CARBON DIOXIDE 26.9 mmol/L (21-32); CHLORIDE 107 mmol/L (98-107); COR CA(FOR HYPOALB) 8.8 mg/dL (8.5-10.1); CREATININE 0.84 mg/dL (0.70-1.30); SODIUM 142 mmol/L (136-145); TOTAL PROTEIN 7.3 g/dL (6.4-8.2); eGFR NON BLACK RACES > 60 (>60)
[2017-12-22] MEDS: MACROBID CAP 100 MG EXT REL PO SCH (08:51)
[2017-12-22] MEDS: ASPIRIN EC 81 MG PO SCH (08:51)
[2017-12-22] MEDS: PROCARDIA XL PO SCH (08:52)
[2017-12-22] MEDS: PROTONIX TAB 40 MG PO SCH (08:52)
[2017-12-22] MEDS: FLOMAX PO SCH (08:52)
[2017-12-22] MEDS: ZyrTEC TAB 10 MG PO SCH (08:52)
[2017-12-22 12:06] VITALS: BP 160/79
[2017-12-22] MEDS ORDERED: COUMADIN TAB 10 MG PO SCH (21:00)
--- NOTE | 2018-01-03 22:09 | PCM.DCPLAN ---
Discharge Summary - Admission Date Date of Admission: 12/19/17 - Discharge Date Discharge Date: 12/22/17 - Admission Diagnoses (1) Subtherapeutic anticoagulation Status: Acute (2) Mechanical heart valve present Status: Chronic (3) Hypertension Status: Acute (4) Left leg pain Status: Acute (5) UTI (urinary tract infection) Status: Acute (6) Chest pain Status: Acute (7) Bradycardia Status: Acute - Discharge Diagnoses Discharge Diagnosis: same as admission diagnosis - Discharge Medications Discharge Medications: Home Medication List albuterol sulfate [ProAir HFA] 1 inh INHALATION Q4-6H PRN 12/19/17 [History] alendronate [Fosamax] 1 tab PO WEEKLY 12/19/17 [History] aspirin [Aspir-81] 1 tab PO DAILY 12/19/17 [History] cetirizine 1 tab PO DAILY 12/19/17 [History] clonidine HCl 1 tab PO BID 12/19/17 [History] gabapentin [Neurontin] 1 tab PO HS 12/19/17 [History] lisinopril 1 tab PO HS 12/19/17 [History] nifedipine [Procardia XL] 1 tab PO DAILY 12/19/17 [History] nitroglycerin 1 tab SUBLINGUAL PRN PRN 12/19/17 [History] pantoprazole [Protonix] 1 tab PO DAILY 12/19/17 [History] rosuvastatin [Crestor] 1 tab PO HS 12/19/17 [History] tamsulosin 1 tab PO DAILY 12/19/17 [History] clonidine HCl 0.2 mg PO BID PRN #0 tab 12/22/17 [Rx] isosorbide-hydralazine [BiDil] 1 tab PO BID #60 tab 12/22/17 [Rx] warfarin [Coumadin] 10 mg PO HS #30 tab 12/22/17 [Rx] Prescriptions: isosorbide-hydralazine [BiDil] HANSEL LACY warfarin [Coumadin] HANSEL LACY - Hospital Course Vital Signs: Temperature 98.7 F Pulse Rate [Right Brachial] 48 Pulse Rate [Left Brachial] 55 Pulse Rate 52 Respiratory Rate 18 Blood Pressure [Left Arm] 160/79 Blood Pressure [Right Arm] 123/58 Blood Pressure 213/88 O2 Sat by Pulse Oximetry 95 Latest Lab Results: Laboratory Last Values WBC 4.6 X10^3/uL (3.6-10.0) 12/22/17 05:42 RBC 4.74 X10^6/uL (4.7-6.0) 12/22/17 05:42 Hgb 13.0 g/dL (13.5-18.0) L 12/22/17 05:42 Hct 38.0 % (42.0-54.0) L 12/22/17 05:42 MCV 80.0 fL (80.0-100.0) 12/22/17 05:42 MCH 27.4 pg (27.0-34.0) 12/22/17 05:42 MCHC 34.2 g/dL (33.0-35.0) 12/22/17 05:42 RDW 14.9 % (11.6-16.5) 12/22/17 05:42 Plt Count 239 X10^3/uL (150.0-450.0) 12/22/17 05:42 MPV 8.7 fL (7.4-11.0) 12/22/17 05:42 Neut % (Auto) 33.0 % (42.0-75.0) L 12/22/17 05:42 Lymph % (Auto) 53.9 % (21.0-51.0) H 12/22/17 05:42 [place] % (Auto) 8.5 % (0.0-13.0) 12/22/17 05:42 Eos % (Auto) 3.6 % (0.9-2.9) H 12/22/17 05:42 Baso % (Auto) 1.0 % (0.2-1.0) 12/22/17 05:42 Neut # (Auto) 1.5 x10^3/uL (2.2-4.8) L 12/22/17 05:42 Lymph # (Auto) 2.5 X10^3/uL (1.3-2.9) 12/22/17 05:42 [place] # (Auto) 0.4 x10^3/uL (0.3-0.8) 12/22/17 05:42 Eos # (Auto) 0.2 x10^3/uL (0.0-0.2) 12/22/17 05:42 Baso # (Auto) 0.0 X10^3/uL (0.0-0.1) 12/22/17 05:42 Absolute Nucleated RBC 0.2 /100WBC 12/22/17 05:42 INR Target Range - 12/22/17 05:42 INR 2.49 (0.8-1.3) H 12/22/17 05:42 APTT 33.3 SECONDS (22.9-36.5) 12/20/17 05:27 PTT Comment - 12/20/17 05:27 D-Dimer < 100 ng/mL (0-400) 12/19/17 09:50 Sodium 142 mmol/L (136-145) 12/22/17 05:42 Corrected Sodium TNP 12/22/17 05:42 Potassium 3.5 mmol/L (3.5-5.1) 12/22/17 05:42 Chloride 107 mmol/L (98-107) 12/22/17 05:42 Carbon Dioxide 26.9 mmol/L (21-32) 12/22/17 05:42 BUN 9 mg/dL (7-18) 12/22/17 05:42 Creatinine 0.84 mg/dL (0.70-1.30) 12/22/17 05:42 Est GFR (MDRD) Af Amer > 60 (>60) 12/22/17 05:42 Est GFR (MDRD) Non-Af > 60 (>60) 12/22/17 05:42 Glucose 97 mg/dL (65-99) 12/22/17 05:42 Calcium 8.2 mg/dL (8.5-10.1) L 12/22/17 05:42 Corrected Calcium 8.8 mg/dL (8.5-10.1) 12/22/17 05:42 Magnesium 1.9 mg/dL (1.7-2.9) 12/20/17 05:27 Total Bilirubin 0.20 mg/dL (0.2-1.0) 12/22/17 05:42 AST 18 Units/L (15-37) 12/22/17 05:42 ALT 33 Units/L (12-78) 12/22/17 05:42 Alkaline Phosphatase 69 Units/L (46-116) 12/22/17 05:42 Creatine Kinase 285 Units/L (39-308) 12/19/17 22:33 CK-MB (CK-2) 1.2 ng/mL (0-4.0) 12/19/17 22:33 CK/CKMB % Calc 0.4 % (<4) 12/19/17 22:33 Troponin I < 0.02 ng/mL (0-1.5) 12/19/17 22:33 Total Protein 7.3 g/dL (6.4-8.2) 12/22/17 05:42 Albumin 3.2 g/dL (3.4-5.0) L 12/22/17 05:42 Globulin 4.1 g/dL (2.5-4.5) 12/22/17 05:42 Albumin/Globulin Ratio 0.8 Ratio (1.1-2.1) L 12/22/17 05:42 Triglycerides 84 mg/dL (0-150) 12/20/17 05:27 Cholesterol 121 mg/dL (0-200) 12/20/17 05:27 LDL Cholesterol, Calc 62 mg/dL (0-100) 12/20/17 05:27 HDL Cholesterol 42 mg/dL (40-60) 12/20/17 05:27 Cholesterol/HDL Ratio 2.9 (0.0-5.0) 12/20/17 05:27 Specimen Type Clean catch urine 12/19/17 10:21 Urine Color Yellow (YELLOW) 12/19/17 10:21 Urine Appearance Clear (CLEAR) 12/19/17 10:21 Urine pH 6.0 (5.0 - 8.0) 12/19/17 10:21 Ur Specific [place] 1.010 (1.000-1.030) 12/19/17 10:21 Urine Protein Negative (NEGATIVE) 12/19/17 10:21 Urine Glucose (UA) 1+ (NEGATIVE) 12/19/17 10:21 Urine Ketones Negative (NEGATIVE) 12/19/17 10:21 Urine Occult Blood 1+ (NEGATIVE) 12/19/17 10:21 Urine Nitrite Negative (NEGATIVE) 12/19/17 10:21 Urine Bilirubin Negative (NEGATIVE) 12/19/17 10:21 Urine Urobilinogen Normal (NORMAL) 12/19/17 10:21 Ur Leukocyte Esterase 1+ (NEGATIVE) 12/19/17 10:21 Urine RBC 0-2 /HPF (NONE SEEN) 12/19/17 10:21 Urine WBC 0-2 /HPF (NONE SEEN) 12/19/17 10:21 Ur Squamous Epith Cells Rare /HPF (NEGATIVE) 12/19/17 10:21 Urine Bacteria Negative /HPF (NEGATIVE) 12/19/17 10:21 Ur Culture Indicated? No/not indicated 12/19/17 10:21 Hospital Course: 67YO BM ADMITTED DUE TO CHEST BURNING WHILE AT WORK. PATIENT IS S/P VALVE REPLACEMENT 2017. COMPLAINED OF LEFT LEG PAIN WELL. DENIES GI SYMPTOMS. STATES PAIN IS BETTER. WAS NOTED TO HAVE SUBTHERAPEUTIC INR. COUMADIN WAS ADJUSTED. NOTED TO BE BRADYCARDIC BUT REMAINS ASYMPTOMATIC. PATIENT WAS DISCHARGED HOME TO BE FOLLOWED OP. - Discharge Plan Disposition: 01 HOME, SELF-CARE Condition: Stable Prescriptions: isosorbide-hydralazine [BiDil] 1 tab PO BID #60 tab warfarin [Coumadin] 10 mg PO HS #30 tab - Follow ups/Referrals Follow ups/Referrals: JEWEL GONZALEZ [Primary Care Provider] - 12/25/17 9:30 am - Instructions Instructions: What You Need to Know About Warfarin, Bradycardia, Adult, Warfarin Coagulopathy, Warfarin tablets, Prothrombin Time, International Normalized Ratio Test, Nonspecific Chest Pain, [id number], Hypertension, Easy- to-Read, Aortic Valve Replacement, Care After Additional Instructions: FOLLOW UP WITH RICHY POTTER IN 3-4 DAYS FOR INR RECHECK. Forms: Patient Portal
== END 2017-12-22 12:45 | disposition home or self-care (01) | DRG 313 ==
LOC: MED/SURG 09:09 → ER 09:09 → MED/SURG 13:14
PROVIDERS: ADMIT Internal Medicine; ATTEND Internal Medicine
DX: I10 Essential (primary) hypertension; T45.7X5A Adverse effect of anticoagulant antagonists, vitamin K and other coagulants, initial encounter; N39.0 Urinary tract infection, site not specified; R00.1 Bradycardia, unspecified; M79.662 Pain in left lower leg; Y92.9 Unspecified place or not applicable; R07.89 Other chest pain; Z79.01 Long term (current) use of anticoagulants
CPT/HCPCS: 36415; 71010; 71045; 80053; 80061; 81001; 82550; 82553; 83735; 84484; 85025; 85378; 85610; 85730; 93005; 93010; 93971; 94760; 96374; 99231; 99284; A4222; G0378; J1650; J7030

== ENCOUNTER 2019-02-17 13:34 | Observation (INO) ==
--- NOTE | 2019-02-17 13:37 | DR.CP ---
HPI Time Seen Time Seen by Provider: 02/17/19 13:37 HPI Comment HPI Comment: PATIENT IS 68YR OLD MALE HERE IN THE EMERGENCY WITH [facility] 4/10 RADIATING TO THE UPPER BACK. PATIENT TO ER FROM PCP OFFICE. HE WENT TO SEE HIS PCP FOR THE CHEST PAIN THAT STARTED ONE WEEK AGO. PATIENT HAD VALVULAR SURGERY LAST YEAR AND IS ON COUMADIN. HISTORY OF HYPERTENSION AND BP IS IN ER. HE ALSO HAVE LOW GRADE FEVER IN ED. DENIES URI SYMPTOMS. INTENSITY OF PAIN HAS BEING HIGHER INTERMITTENTLY. Complaint Chief Complaint Doctor Comments: CHEST PAIN TIMES ONE WEEK. Reviewed Nurses Notes Review: Yes Source History Provided: Patient Mode of Arrival Mode of Arrival: Ambulatory Timing Came on: Suddenly Pain: Present Now Duration Duration: Intermittent Duration: Days Location Location of Chest Pain: Chest ([facility] CP.) Chest Pain Radiation Location: Back Context Onset: At rest Cardiac Risk Factors: HTN PE Risk Factors: None History of: Similar pain in the past, Valve Disease and Aspirin in last 24 hours Prehospital Care: ASA Quality Quality: Sharp Severity Severity: Moderate Modifying Factors Worsens: Exertion and Movement Associated Signs and Symptoms Associated Signs and Symptoms: Shortness of Breath and Nausea/Vomiting Other History Other History: VALVULAR HEART SURGERY. PMH PMH Past Medical History: Hypertension Past Surgical History: Yes Family History Family Medical History: Cancer and Coronary Artery Disease Social History Do you use any recreational Drugs:: No ROS Review of Systems Constitutional: See HPI, Fever, Weakness and Fatigue Eyes: No Symptoms Reported and See HPI ENTM: No Symptoms Reported and See HPI Respiratoy: See HPI and Short of Breath; negative Moist Cough Cardiovascular: No Symptoms Reported, See HPI and Chest Pain; negative Edema and Palpitations Gastrointestinal/Abdominal: See HPI and Nausea; negative Abdominal Pain, Constipation, Diarrhea and Vomiting Genitourinary: No Symptoms Reported and See HPI; negative Discharge, Dysuria and Frequency Neurological: See HPI and Weakness; negative Headache and Dizziness Musculoskeletal: No Symptoms Reported Integumentary: No Symptoms Reported and See HPI; negative Change in Color, Rash and Juandice Hematologic/Lymphatic: See HPI, Easy Bleeding and Easy Bruising; negative Swollen Glands Endocrine: No Symptoms Reported and See HPI; negative Increased Thirst and Increased Urine Psychiatric: No Symptoms Reported and See HPI All Other Systems: Reviewed and Negative PE Vitals Vitals: Temperature 99.2 F Pulse Rate [Apical] 65 Pulse Rate 70 Respiratory Rate 15 Blood Pressure [Left Arm] 155/74 Blood Pressure [Right Arm] 123/58 Blood Pressure 185/82 O2 Sat by Pulse Oximetry 96 General Limitations: No Limitations General Appearance: Alert and In No Apparent Distress Head Head Exam: Normal Inspection and Atraumatic Eyes Eye exam: Normal Appearance, PERRL and EOMI; negative Scleral Icterus and Conjunctival Injection ENT ENT Exam: Normal Oropharynx, Normal External Ear Exam and TM's Normal Bilaterally Chest Chest Inspection: Normal Inspection and Symmetric Chest Wall Rise; negative Tenderness Respiratory Respiratory Exam: Normal Lung Sounds Bilat; negative Accessory Muscle Use, Chest Wall Tenderness and Respiratory Distress Respiratory Exam: Bilateral: Rhonchi and Lower: Rhonchi Cardiovascular Cardiovascular Exam: Normal Rhythm, Normal Heart Sounds and Systolic Murmur; negative Regular Rate and Diastolic Murmur Pulse: Normal Edema: Normal Abdominal Exam Abdominal Exam: Normal Inspection, Normal Bowel Sounds and Soft; negative Tenderness Extremities Extremities Exam: Normal Inspection and Normal Capillary Refill; negative Tenderness, Edema and Calf Tenderness Back Back Exam: Normal Inspection; negative Tenderness, (R) CVA Tenderness, (L) CVA Tenderness, Paraspinal Tenderness and Vertebral Tenderness Neurologic Neurological Exam: Alert, Oriented X3 and CN II-XII Intact; negative Motor Sensory Deficit Psychiatric Psychiatric Exam: Normal Affect; negative Normal Mood Skin Skin Exam: Warm, Dry, Intact and Normal Color MDM Differential Diagnosis Differential Diagnosis: Angina, Chest Wall Pain, CHF, Costochondritis, Myocar dial Infarction, Pericarditis, Pleuritis and Pneumothorax COURSE Treatment Treatment: SEE ORDERS. Education/Counseling Education/Counseling: Patient Educated On: Diagnosis and Needs for Follow Up ROR Labs Reviewed Laboratory Results Reviewed?: Yes Result Diagrams: 02/18/19 05:21 02/18/19 05:21 Laboratory: WBC 5.8 X10^3/uL (3.6-10.0) 02/17/19 13:54 RBC 5.17 X10^6/uL (4.7-6.0) 02/17/19 13:54 Hgb 14.7 g/dL (13.5-18.0) 02/17/19 13:54 Hct 42.4 % (42.0-54.0) 02/17/19 13:54 MCV 82.0 fL (80.0-100.0) 02/17/19 13:54 MCH 28.5 pg (27.0-34.0) 02/17/19 13:54 MCHC 34.7 g/dL (33.0-35.0) 02/17/19 13:54 RDW 14.5 % (11.6-16.5) 02/17/19 13:54 Plt Count 298 X10^3/uL (150.0-450.0) 02/17/19 13:54 MPV 7.8 fL (7.4-11.0) 02/17/19 13:54 Neut % (Auto) 47.0 % (42.0-75.0) 02/17/19 13:54 Lymph % (Auto) 42.4 % (21.0-51.0) 02/17/19 13:54 [place] % (Auto) 8.2 % (0.0-13.0) 02/17/19 13:54 Eos % (Auto) 1.6 % (0.9-2.9) 02/17/19 13:54 Baso % (Auto) 0.8 % (0.2-1.0) 02/17/19 13:54 Neut # (Auto) 2.7 x10^3/uL (2.2-4.8) 02/17/19 13:54 Lymph # (Auto) 2.5 X10^3/uL (1.3-2.9) 02/17/19 13:54 [place] # (Auto) 0.5 x10^3/uL (0.3-0.8) 02/17/19 13:54 Eos # (Auto) 0.1 x10^3/uL (0.0-0.2) 02/17/19 13:54 Baso # (Auto) 0.0 X10^3/uL (0.0-0.1) 02/17/19 13:54 Absolute Nucleated RBC 0.0 /100WBC 02/17/19 13:54 PT 22.9 SECONDS (11.8-14.3) 02/17/19 13:54 INR Target Range - 02/17/19 13:54 INR 2.11 (0.8-1.3) H 02/17/19 13:54 APTT 37.1 SECONDS (22.9-36.5) H 02/17/19 13:54 PTT Comment - 02/17/19 13:54 Sodium 140 mmol/L (136-145) 02/17/19 13:54 Corrected Sodium TNP 02/17/19 13:54 Potassium 3.7 mmol/L (3.5-5.1) 02/17/19 13:54 Chloride 104 mmol/L (98-107) 02/17/19 13:54 Carbon Dioxide 25.5 mmol/L (21-32) 02/17/19 13:54 BUN 20 mg/dL (7-18) H 02/17/19 13:54 Creatinine 1.05 mg/dL (0.70-1.30) 02/17/19 13:54 Est GFR (MDRD) Af Amer > 60 (>60) 02/17/19 13:54 Est GFR (MDRD) Non-Af > 60 (>60) 02/17/19 13:54 Glucose 108 mg/dL (65-99) H 02/17/19 13:54 Calcium 8.6 mg/dL (8.5-10.1) 02/17/19 13:54 Corrected Calcium TNP 02/17/19 13:54 Magnesium 2.1 mg/dL (1.7-2.9) 02/17/19 13:54 Total Bilirubin 0.30 mg/dL (0.2-1.0) 02/17/19 13:54 AST 25 Units/L (15-37) 02/17/19 13:54 ALT 39 Units/L (12-78) 02/17/19 13:54 Alkaline Phosphatase 78 Units/L (46-116) 02/17/19 13:54 Creatine Kinase 606 Units/L (39-308) H 02/17/19 13:54 CK-MB (CK-2) 3.0 ng/mL (0-4.0) 02/17/19 13:54 CK/CKMB % Calc 0.5 % (<4) 02/17/19 13:54 Troponin I < 0.02 ng/mL (0-1.5) 02/17/19 13:54 Total Protein 8.1 g/dL (6.4-8.2) 02/17/19 13:54 Albumin 4.2 g/dL (3.4-5.0) 02/17/19 13:54 Globulin 3.9 g/dL (2.5-4.5) 02/17/19 13:54 Albumin/Globulin Ratio 1.1 Ratio (1.1-2.1) 02/17/19 13:54 XRAY XRAY Interpreted by: Radiologist and Both XRAY Findings: REPORT NOTED AND DISCUSSED WITH PATIENT. EKG Rate: 73 Happy: Normal Rhythm: NSR Block: None Hypertrophy: LAE and LVH ST: Nonsp Opioid Opioid Risk Tool Age ([place]ake box if 16-45): No Total: 0 Total Score Risk Category: Low Risk Copyright: Silveira LR predicting aberrant behaviors Diagnosis Discharge Problem: Chest pain Qualifiers: Chest pain type: other chest pain Qualified Code(s): R07.89 - Other chest pain Instructions Instructions: Bradycardia, Adult Bleeding Precautions When on Anticoagulant Therapy, Adult Hypertension, [id number] Chest Wall Pain Forms: Excuse From Work or School Patient Portal
[2019-02-17 13:45] VITALS: BMI 30.4
[2019-02-17] MEDS ORDERED: ASPIRIN EC 81 MG PO ONE (13:54)
[2019-02-17] MEDS ORDERED: ASPIRIN 81 MG CHEWTAB ONE (13:55)
[2019-02-17 14:07] LABS: BASOPHILS % (AUTO) 0.8 % (0.2-1.0); EOSINOPHILS # (AUTO) 0.1 x10^3/uL (0.0-0.2); EOSINOPHILS % (AUTO) 1.6 % (0.9-2.9); HEMATOCRIT 42.4 % (42.0-54.0); HEMOGLOBIN 14.7 g/dL (13.5-18.0); LYMPHOCYTES # (AUTO) 2.5 X10^3/uL (1.3-2.9); LYMPHOCYTES % (AUTO) 42.4 % (21.0-51.0); MEAN CORPUSCULAR HEMOGLOBIN 28.5 pg (27.0-34.0); MEAN CORPUSCULAR HGB CONC 34.7 g/dL (33.0-35.0); MEAN PLATELET VOLUME 7.8 fL (7.4-11.0); MONOCYTES # (AUTO) 0.5 x10^3/uL (0.3-0.8); MONOCYTES % (AUTO) 8.2 % (0.0-13.0); NEUTROPHILS # (AUTO) 2.7 x10^3/uL (2.2-4.8); PLATELET COUNT 298 X10^3/uL (150.0-450.0); RED BLOOD COUNT 5.17 X10^6/uL (4.7-6.0); RED CELL DISTRIBUTION WIDTH 14.5 % (11.6-16.5); WHITE BLOOD COUNT 5.8 X10^3/uL (3.6-10.0)
[2019-02-17 14:19] LABS: BLOOD UREA NITROGEN 20 mg/dL (7-18); CALCIUM 8.6 mg/dL (8.5-10.1); CARBON DIOXIDE 25.5 mmol/L (21-32); CHLORIDE 104 mmol/L (98-107); CREATININE 1.05 mg/dL (0.70-1.30); SODIUM 140 mmol/L (136-145); TROPONIN I < 0.02 ng/mL (0-1.5); eGFR NON BLACK RACES > 60 (>60)
--- NOTE | 2019-02-17 14:19 | RAD ---
HISTORY: Chest pain Study: Single-view of the chest Comparison: December 19, 2017 Findings: The patient is rotated. The cardiac silhouette is at the upper limits of normal. The lungs are clear without focal infiltrate or effusion. Elevation of the right hemidiaphragm again noted. IMPRESSION: 1. No acute cardiopulmonary disease. Reported By:
[2019-02-17 14:35] LABS: ALANINE AMINOTRANSFERASE 39 Units/L (12-78); ALBUMIN 4.2 g/dL (3.4-5.0); ALKALINE PHOSPHATASE 78 Units/L (46-116); ASPARTATE AMINO TRANSFERASE 25 Units/L (15-37); CKMB % 0.5 % (<4); CREATINE KINASE 606 Units/L (39-308); MAGNESIUM 2.1 mg/dL (1.7-2.9); TOTAL PROTEIN 8.1 g/dL (6.4-8.2)
[2019-02-17] MEDS ORDERED: NITROSTAT SL PRN (16:55)
[2019-02-17] MEDS ORDERED: PROVENTIL NEB TX 0.083% 2.5MG/ 3ML NEB PRN ×2 (17:31→21:00)
[2019-02-17] MEDS: NEURONTIN CAP 400 MG PO SCH ×2 (18:56→21:19)
[2019-02-17] MEDS ORDERED: POTASSIUM CHL 60 MEQ/NS 0.45% 500 ML IV PRN (19:48)
[2019-02-17] MEDS ORDERED: MICRO K EXTEN CAP 10 MEQ PO PRN (19:48)
[2019-02-17] MEDS ORDERED: POTASSIUM CHLORIDE LIQ 20 MEQ UDC PO PRN (19:48)
[2019-02-17] MEDS ORDERED: POTASSIUM CHL 40 MEQ/NS 0.45% 500 ML IV PRN (19:48)
[2019-02-17] MEDS ORDERED: K-RIDER 10 MEQ/NS 100 ML 10 MEQ/100 ML BAG IV PRN (19:48)
[2019-02-17] MEDS ORDERED: KLOR-CON PO PRN (19:48)
[2019-02-17] MEDS ORDERED: ZESTRIL TAB 40 MG PO SCH (21:00)
[2019-02-17] MEDS ORDERED: COUMADIN TAB 7.5 MG PO SCH (21:00)
[2019-02-17] MEDS: K-DUR TAB 20 MEQ PO PRN (21:08)
[2019-02-17] MEDS: ISOSORBIDE DINITRATE PO SCH (21:09)
[2019-02-17] MEDS: APRESOLINE TAB 25 MG PO SCH (21:19)
[2019-02-17 23:00] LABS: CKMB % 0.5 % (<4); CREATINE KINASE 482 Units/L (39-308); CREATINE KINASE MB 2.4 ng/mL (0-4.0); TROPONIN I < 0.02 ng/mL (0-1.5)
[2019-02-18 00:07] LABS: BILIRUBIN,URINE NEGATIVE (NEGATIVE); BLOOD/HEMOGLOBIN,URINE NEGATIVE (NEGATIVE); GLUCOSE, URINE NEGATIVE (NEGATIVE); KETONES,URINE NEGATIVE (NEGATIVE); LEUKOCYTE ESTERASE ,URINE 1+ (NEGATIVE); NITRITES,URINE NEGATIVE (NEGATIVE); PH,URINE 6.5 (5.0 - 8.0); PROTEIN,URINE NEGATIVE (NEGATIVE); UROBILINOGEN,URINE 1+ (NORMAL)
[2019-02-18 00:11] LABS: APPEARANCE,URINE CLEAR (CLEAR); COLOR,URINE YELLOW (YELLOW)
[2019-02-18 00:12] LABS: BACTERIA,URINE TRACE /HPF (NEGATIVE); RBC,URINE NONE SEEN /HPF (0-3); SQUAMOUS EPITHELIAL CELL,UR RARE /HPF (NEGATIVE)
[2019-02-18] MEDS: APRESOLINE TAB 25 MG PO SCH (05:26)
[2019-02-18] MEDS: ISOSORBIDE DINITRATE PO SCH (05:27)
[2019-02-18] MEDS: NEURONTIN CAP 400 MG PO SCH (05:27)
[2019-02-18 06:13] LABS: BASOPHILS % (AUTO) 0.8 % (0.2-1.0); EOSINOPHILS # (AUTO) 0.1 x10^3/uL (0.0-0.2); EOSINOPHILS % (AUTO) 2.8 % (0.9-2.9); HEMATOCRIT 40.2 % (42.0-54.0); LYMPHOCYTES # (AUTO) 1.6 X10^3/uL (1.3-2.9); LYMPHOCYTES % (AUTO) 39.2 % (21.0-51.0); MEAN CORPUSCULAR HEMOGLOBIN 28.4 pg (27.0-34.0); MEAN CORPUSCULAR HGB CONC 34.8 g/dL (33.0-35.0); MEAN CORPUSCULAR VOLUME 81.7 fL (80.0-100.0); MEAN PLATELET VOLUME 8.3 fL (7.4-11.0); MONOCYTES # (AUTO) 0.4 x10^3/uL (0.3-0.8); MONOCYTES % (AUTO) 10.2 % (0.0-13.0); PLATELET COUNT 247 X10^3/uL (150.0-450.0); RED BLOOD COUNT 4.92 X10^6/uL (4.7-6.0); WHITE BLOOD COUNT 4.2 X10^3/uL (3.6-10.0)
[2019-02-18 06:22] LABS: ALANINE AMINOTRANSFERASE 32 Units/L (12-78); ALBUMIN 3.4 g/dL (3.4-5.0); ALKALINE PHOSPHATASE 68 Units/L (46-116); ASPARTATE AMINO TRANSFERASE 21 Units/L (15-37); BLOOD UREA NITROGEN 15 mg/dL (7-18); CARBON DIOXIDE 25.9 mmol/L (21-32); CHLORIDE 104 mmol/L (98-107); CHOL/HDL RATIO 2.8 (0.0-5.0); CHOLESTEROL 127 mg/dL (0-200); CREATININE 0.87 mg/dL (0.70-1.30); HDL CHOLESTEROL 45 mg/dL (40-60); SODIUM 138 mmol/L (136-145); TRIGLYCERIDES 78 mg/dL (0-150); eGFR NON BLACK RACES > 60 (>60)
[2019-02-18 06:31] LABS: CKMB % 0.6 % (<4); CREATINE KINASE 422 Units/L (39-308); CREATINE KINASE MB 2.3 ng/mL (0-4.0); TROPONIN I < 0.02 ng/mL (0-1.5)
[2019-02-18 08:44] VITALS: BP 144/76
[2019-02-18] MEDS ORDERED: FLOMAX PO SCH (09:00)
[2019-02-18] MEDS ORDERED: PROCARDIA XL PO SCH (09:00)
[2019-02-18] MEDS ORDERED: ASPIRIN EC 81 MG PO SCH (09:00)
[2019-02-18] MEDS ORDERED: ZyrTEC TAB 10 MG PO SCH (09:00)
[2019-02-18] MEDS: K-DUR TAB 20 MEQ PO PRN (09:32)
== END 2019-02-18 11:15 | disposition home or self-care (01) ==
LOC: SUPCPDRO → OBS 13:34 → ER 13:34 → OBS 16:13
PROVIDERS: ADMIT Obstetrics & Gynecology Obstetrics; ATTEND Obstetrics & Gynecology Obstetrics
DX: R79.1 Abnormal coagulation profile; Z95.2 Presence of prosthetic heart valve; R94.31 Abnormal electrocardiogram [ECG] [EKG]; I10 Essential (primary) hypertension; M94.0 Chondrocostal junction syndrome [Tietze]
CPT/HCPCS: 36415; 71010; 71045; 80053; 80061; 81001; 82550; 82553; 83735; 84484; 85025; 85610; 85730; 93005; 96365; 99284; A4216; A4222; G0378